=== PATIENT | female | born 1985 | race Caucasian/White ===

== ENCOUNTER 2017-06-04 17:22 | Emergency (ER) | payer OTHER ==
[~2017-06-04] VITALS: Ht 162.6 cm; Wt 117.9 kg
[2017-06-04 17:35] VITALS: BP_SYST 152
[2017-06-04] MEDS ORDERED: KETOROLAC TROMETHAMINE 60 MG/2 ML VIAL IM ONE (18:30)
[2017-06-04] MEDS ORDERED: DEXAMETHASONE SOD PHOSPHATE 10 MG/ML VIAL IM ONE (18:30)
[2017-06-04 18:58] VITALS: BP_SYST 152
== END 2017-06-04 18:58 | disposition home or self-care (01) ==
LOC: SED 17:22
DX: S16.1XXA Strain of muscle, fascia and tendon at neck level, initial encounter (principal); G56.03 Carpal tunnel syndrome, bilateral upper limbs; R03.0 Elevated blood-pressure reading, without diagnosis of hypertension; X58.XXXA Exposure to other specified factors, initial encounter; Y93.89 Activity, other specified; Y92.89 Other specified places as the place of occurrence of the external cause; Y99.8 Other external cause status
CPT/HCPCS: 29125; 96372; 99284; J1100; J1885

== ENCOUNTER 2019-01-21 19:36 | Emergency (ER) | payer OTHER ==
[~2019-01-21] VITALS: Ht 162.6 cm; Wt 82.6 kg
[2019-01-21 19:40] VITALS: BP_SYST 155
--- NOTE | 2019-01-21 19:40 | NUR ---
Patient triaged and placed in waiting room. VSS and patient appears in no acute distress at this time. Accompanied by her daugther, awaiting available bed, and MD notified of need for MSE.
--- NOTE | 2019-01-21 20:12 | NUR ---
Patient to ER bed to gown for evaluation. Side rails up. Report given to Salud SOLANO.
--- NOTE | 2019-01-21 20:15 | NUR ---
patient come with with c/o lower back pain and dehydration x 2 days. patient states she had gastric bypass and has had problems keeping food down since. patient states she was gets really sick to her stomach when she eats. patient denies following up with gastric bypass team at [facility]. patient is drinking water at bedside. patient has normal active bowelsounds. no vomiting at this time. no other complaint or injury at this time.
--- NOTE | 2019-01-21 20:28 | NUR ---
ER at bedside examining patient.
[2019-01-21] MEDS ORDERED: NACL 0.9% 1,000 ML IV ONE (21:00)
[2019-01-21 21:20] LABS: BILIRUBIN,URINE NEGATIVE (NEGATIVE); CLARITY/URINE CLEAR (CLEAR); COLOR,URINE YELLOW (YELLOW); GLUCOSE,URINE NEGATIVE (NEGATIVE); KETONES,URINE NEGATIVE (NEGATIVE); LEUKOCYTE ESTERASE ,URINE NEGATIVE (NEGATIVE); NITRITE, URINE NEGATIVE (NEGATIVE); PH,URINE 6.5 (5.0-8.0); PROTEIN URINE NEGATIVE (NEGATIVE); UROBILINOGEN,URINE 0.2 (0.2-1.0)
[2019-01-21 21:22] LABS: BLOOD, URINE TRACE (NEGATIVE)
[2019-01-21 21:27] LABS: BASOPHILS % (AUTO) 0.8 % (0.0-2.0); EOSINOPHILS # (AUTO) 0.1 K/uL (0.0-0.4); HEMATOCRIT 34.5 % (36-48); HEMOGLOBIN 11.6 g/dL (12.0-16.0); LYMPHOCYTES # (AUTO) 2.4 K/uL (1.0-5.5); LYMPHOCYTES % (AUTO) 37.6 % (20.5-51.5); MEAN CORPUSCULAR HEMOGLOBIN 31 pg (27-31); MEAN CORPUSCULAR HGB CONC 34 % (32-36); MEAN CORPUSCULAR VOLUME 92 fL (79.0-98.0); MONOCYTES # (AUTO) 0.4 K/uL (0.0-1.0); MONOCYTES % (AUTO) 5.9 % (1.7-9.3); NEUTROPHILS # (AUTO) 3.5 K/uL (1.8-7.7); NEUTROPHILS % (AUTO) 54.7 % (40.0-70.0); PLATELET COUNT (AUTO) 216 K/uL (130-430); RED BLOOD CELL COUNT(AUTO) 3.73 MIL/uL (4.2-6.2); RED CELL DISTRIBUTION WIDTH 14.9 % (9.0-15.0); WHITE BLOOD COUNT (AUTO) 6.3 K/uL (4.8-10.8)
[2019-01-21 21:41] LABS: CALCIUM 8.2 mg/dL (8.4-11.0); CREATININE 0.83 mg/dL (0.55-1.30); POTASSIUM 4.2 mmol/L (3.5-5.1)
[2019-01-21 21:42] LABS: BACTERIA,URINE FEW /HPF (None Seen); WBC,URINE 0-3 /HPF (0-3)
[2019-01-21 21:46] LABS: ALBUMIN 3.2 g/dL (3.4-4.8); TOTAL BILIRUBIN 0.3 mg/dL (0.0-1.0)
[2019-01-21 23:17] VITALS: BP_SYST 145
--- NOTE | 2019-01-21 23:17 | NUR ---
Patient given written and verbal discharge instructions and verbalizes understanding. ER MD discussed with patient the results and treatment provided. Patient in stable condition. ID arm band removed. Rx of Zofran given. Patient educated on pain management and to follow up with PMD. Pain Scale 0/10. Opportunity for questions provided and answered. Medication side effect fact sheet provided.
== END 2019-01-21 23:17 | disposition home or self-care (01) ==
LOC: SED 19:36
DX: R11.2 Nausea with vomiting, unspecified (principal); R42 Dizziness and giddiness; R03.0 Elevated blood-pressure reading, without diagnosis of hypertension; Z98.84 Bariatric surgery status
CPT/HCPCS: 36415; 80053; 81000; 81025; 85025; 96360; 99283; J7030

== ENCOUNTER 2019-03-02 20:17 | Emergency (ER) | payer OTHER ==
[~2019-03-02] VITALS: Ht 162.6 cm; Wt 79.4 kg
[2019-03-02 20:23] VITALS: BP_SYST 149
--- NOTE | 2019-03-02 22:39 | NUR ---
Patient to ER chair to gown for evaluation. Side rails up. Report given to Chuy SOLANO.
--- NOTE | 2019-03-02 22:45 | NUR ---
Pt C/O RT knee pain S/P mechanical fall at work. Pt denies any KO, N/V, or any other symptoms at this time. Pain increases on ambulation. Full ROM to RT leg, will continue to monitor.
--- NOTE | 2019-03-02 23:02 | NUR ---
ER Dr. Jacobs at bedside examining patient.
--- NOTE | 2019-03-02 23:10 | NUR ---
Pt is resting in chair will continue to monitor.
[2019-03-02] MEDS ORDERED: HYDROcodone/ACETAMIN 5-325 MG TAB (NORCO/ VICODIN) PO ONE (23:15)
[2019-03-02] MEDS ORDERED: ONDANSETRON 4 MG ODT TAB PO ONE (23:15)
[2019-03-02 23:37] VITALS: BP_SYST 132
--- NOTE | 2019-03-02 23:39 | NUR ---
Patient given written and verbal discharge instructions and verbalizes understanding. ER MD discussed with patient the results and treatment provided. Patient in stable condition. ID arm band removed. Rx of Zofran and Zaleski given. Patient educated on pain management and to follow up with PMD. Pain Scale 0. Opportunity for questions provided and answered. Medication side effect fact sheet provided.
== END 2019-03-02 23:39 | disposition home or self-care (01) ==
LOC: SED 20:17
DX: S83.91XA Sprain of unspecified site of right knee, initial encounter (principal); W01.0XXA Fall on same level from slipping, tripping and stumbling without subsequent striking against object, initial encounter; Y93.89 Activity, other specified; Y92.89 Other specified places as the place of occurrence of the external cause; Y99.8 Other external cause status
CPT/HCPCS: 29505; 73564; 99283; Q0162

== ENCOUNTER 2019-04-06 19:24 | Emergency (ER) | payer OTHER ==
[~2019-04-06] VITALS: Ht 162.6 cm; Wt 78.5 kg
[2019-04-06 19:34] VITALS: BP_SYST 142
--- NOTE | 2019-04-06 19:46 | NUR ---
Patient to ER bed 07 to gown for evaluation. Side rails up. Report given to XIOMARA Contreras
--- NOTE | 2019-04-06 19:46 | NUR ---
Mother complains of fever x 2 days, abdominal pain, lack of appetite. Pt also states that she feels her left lymph node swollen. +N/V and headache. Pt requests to have STD screening because she had unprotected sex about 2 months ago. No other injuries/complaints per patient or noted.
--- NOTE | 2019-04-06 19:47 | NUR ---
ER CHANDA Funez at bedside examining patient.
[2019-04-06] MEDS ORDERED: DEXAMETHASONE SOD PHOSPHATE 10 MG/ML VIAL IM ONE (20:15)
[2019-04-06] MEDS ORDERED: KETOROLAC TROMETHAMINE 60 MG/2 ML VIAL IM ONE (20:15)
--- NOTE | 2019-04-06 20:25 | NUR ---
Medications were given, pt tolerated well. No adverse reaction, will continue to monitor.
[2019-04-06 21:04] LABS: BILIRUBIN,URINE NEGATIVE (NEGATIVE); COLOR,URINE YELLOW (YELLOW); GLUCOSE,URINE NEGATIVE (NEGATIVE); KETONES,URINE NEGATIVE (NEGATIVE); LEUKOCYTE ESTERASE ,URINE NEGATIVE (NEGATIVE); NITRITE, URINE NEGATIVE (NEGATIVE); PH,URINE 6.5 (5.0-8.0); PROTEIN URINE NEGATIVE (NEGATIVE); UROBILINOGEN,URINE 0.2 (0.2-1.0)
[2019-04-06 21:08] LABS: BLOOD, URINE TRACE (NEGATIVE); CLARITY/URINE SLIGHTLY HAZY (CLEAR)
[2019-04-06 21:13] LABS: BACTERIA,URINE FEW /HPF (None Seen); RBC,URINE 0-3 /HPF (0-3)
[2019-04-06 21:14] LABS: MUCUS,URINE 1+ /LPF (None Seen); YEAST,URINE Few /HPF (None Seen)
[2019-04-06] MEDS ORDERED: FLUCONAZOLE 100 MG TABLET (DIFLUCAN) PO ONE (21:30)
[2019-04-06] MEDS ORDERED: AZITHROMYCIN 250 MG TABLET PO ONE (21:30)
[2019-04-06] MEDS ORDERED: cefTRIAXone 1 GM in LIDOCAINE 1%, 20 ML MDV 2.1 ML IM ONE (21:30)
[2019-04-06 21:46] VITALS: BP_SYST 138
--- NOTE | 2019-04-06 21:46 | NUR ---
Patient given written and verbal discharge instructions and verbalizes understanding. ER MD discussed with patient the results and treatment provided. Patient in stable condition. ID arm band removed. Rx of zofran, tylenol and macrobid given. Patient educated on pain management and to follow up with PMD. Pain Scale 0/10 Opportunity for questions provided and answered. Medication side effect fact sheet provided.
[2019-04-12 17:49] LABS: CHLAMYDIA TRACHOMATIS NAA Negative (Negative); NEISSERIA GONORRHOEAE NAA Negative (Negative)
== END 2019-04-06 21:46 | disposition home or self-care (01) ==
LOC: SED 19:24
DX: J02.8 Acute pharyngitis due to other specified organisms (principal); B97.89 Other viral agents as the cause of diseases classified elsewhere; N39.0 Urinary tract infection, site not specified; R03.0 Elevated blood-pressure reading, without diagnosis of hypertension; Z11.3 Encounter for screening for infections with a predominantly sexual mode of transmission
CPT/HCPCS: 36415; 81000; 81025; 86403; 86592; 87081; 87491; 87591; 96372; 99283; J0696; J1100; J1885; J2001; Q0144

== ENCOUNTER 2019-06-17 07:54 | Emergency (ER) | payer OTHER ==
[~2019-06-17] VITALS: Ht 162.6 cm; Wt 77.1 kg
[2019-06-17] MEDS ORDERED: PNV91TAB3 PO (08:05)
--- NOTE | 2019-06-17 08:05 | NUR ---
PATIENT TO ER #5
[2019-06-17 08:06] VITALS: BP_SYST 135
--- NOTE | 2019-06-17 08:07 | NUR ---
Patient arrived in the ED c/o vaginal bleeding and cramping since yesterday morning. LMP 04/28/19. Denied any chest pain or shortness of breath. Denied any fevers, nausea, vomiting, or chills. Patient is alert and oriented x4, respirations even and unlabored, speaking in full sentences, ambulating with a steady gait. VSS, pain level 7/10. Informed of wait time. Instructed to notify ED staff for any changes in condition or worsening of symptoms. Patient verbalized understanding.
--- NOTE | 2019-06-17 08:10 | NUR ---
Patient ambulated to the bathroom with a steady gait. Urine specimen collected.
--- NOTE | 2019-06-17 08:15 | NUR ---
ER Dr. Arias at bedside examining patient.
[2019-06-17 08:52] LABS: BASOPHILS % (AUTO) 0.6 % (0.0-2.0); EOSINOPHILS # (AUTO) 0.1 K/uL (0.0-0.4); EOSINOPHILS % (AUTO) 1.9 % (0.0-4.0); HEMATOCRIT 32.5 % (36-48); HEMOGLOBIN 10.9 g/dL (12.0-16.0); LYMPHOCYTES # (AUTO) 1.3 K/uL (1.0-5.5); LYMPHOCYTES % (AUTO) 16.8 % (20.5-51.5); MEAN CORPUSCULAR HEMOGLOBIN 31 pg (27-31); MEAN CORPUSCULAR HGB CONC 33 % (32-36); MEAN CORPUSCULAR VOLUME 92 fL (79.0-98.0); MONOCYTES # (AUTO) 0.5 K/uL (0.0-1.0); NEUTROPHILS # (AUTO) 5.6 K/uL (1.8-7.7); NEUTROPHILS % (AUTO) 74.7 % (40.0-70.0); PLATELET COUNT (AUTO) 210 K/uL (130-430); RED BLOOD CELL COUNT(AUTO) 3.55 MIL/uL (4.2-6.2); RED CELL DISTRIBUTION WIDTH 14.3 % (9.0-15.0); WHITE BLOOD COUNT (AUTO) 7.5 K/uL (4.8-10.8)
--- NOTE | 2019-06-17 09:29 | NUR ---
RECEIVED CALL FROM LAB, SERUM WAS NEGATIVE.
--- NOTE | 2019-06-17 10:28 | NUR ---
DR LINCOLN AT BEDSIDE TO PERFORM PELVIC EXAM WITH [employer]IVERY CAR DRIVER ESPERANZA
[2019-06-17 10:40] VITALS: BP_SYST 135
--- NOTE | 2019-06-17 10:43 | NUR ---
Patient given written and verbal discharge instructions and verbalizes understanding. ER MD discussed with patient the results and treatment provided. Patient in stable condition. ID arm band removed. Rx of Tramadol and Provera given. Patient educated on pain management and to follow up with PMD. Pain Scale 0/10. Opportunity for questions provided and answered. Medication side effect fact sheet provided.
== END 2019-06-17 10:43 | disposition home or self-care (01) ==
LOC: SED 07:54
DX: N93.8 Other specified abnormal uterine and vaginal bleeding (principal); I10 Essential (primary) hypertension
CPT/HCPCS: 36415; 81025; 84703; 85025; 99284